=== PATIENT | male | born 1960 | race Two or more races ===

== ENCOUNTER 2022-08-27 09:14 | Emergency (ER) | payer OTHER ==
[~2022-08-27] VITALS: Ht 180.3 cm; Wt 93.0 kg
[2022-08-27] MEDS ORDERED: CRESTOR5 MG PO (09:34)
== END 2022-08-27 10:36 | disposition home or self-care (01) ==
LOC: ER 09:14
DX: T17.298A Other foreign object in pharynx causing other injury, initial encounter (principal); X58.XXXA Exposure to other specified factors, initial encounter; Y93.89 Activity, other specified; Y92.9 Unspecified place or not applicable; Y99.9 Unspecified external cause status